=== PATIENT | female | born 1945 | race Two or more races ===

== ENCOUNTER 2024-11-16 09:02 | Outpatient (CLI) | payer OTHER | END 2024-11-16 09:07 | disposition home or self-care (01) | LOC: RAD 09:02 | PROVIDERS: ATTEND Physical Medicine & Rehabilitation | DX: M54.59 Other low back pain (principal) ==

== ENCOUNTER → 2025-08-06 | Emergency (ER) | payer OTHER ==
[~2025-08-06] VITALS: Ht 152.4 cm; Wt 56.7 kg
[~2025-08-06] MED LIST: 0.9 % SODIUM CHLORIDE 500 ML IV SCH; ANUSOL-HC25 MG RECTAL; DIPHENHYDRAMINE HCL 50 MG/ML VIAL 1ML IV ONE; DIPHENHYDRAMINE HCL 50 MG/ML VIAL 1ML ONE; METHYLPREDNISOLONE SOD SUCC 125 MG VIAL IV ONE; METHYLPREDNISOLONE SOD SUCC 125 MG VIAL ONE; PANTOPRAZOLE SODIUM 40 MG/VIAL VIAL IV ONE
[2025-08-06 21:39] LABS: BASO % 0.3 % (0.1-1.2); EOS # 0.09 (0.04-0.54); EOS % 1.0 % (0.7-7.0); LYMPH # 3.62 (1.18-3.74); LYMPH % 38.2 % (19.3-53.1); MEAN PLATELET VOLUME 9.30 fl (9.4-12.4); MONO # 0.85 (0.24-0.82); MONO % 9.0 % (4.7-12.5); NEUT # 4.87 (1.56-6.13); NEUT % 51.4 % (34.0-71.1); RED CELL DISTRIBUTION WIDTH 13.2 % (11.6-14.4)
[2025-08-06 21:46] LABS: ERYTHROCYTE SEDIMENTATION RATE 34 mm/hr (0-30)
[2025-08-06 23:52] LABS: INR 1.00
[2025-08-06 23:53] LABS: ALT/SGPT 34 U/L (12-78); AST/SGOT 28 U/L (15-37); BILIRUBIN TOTAL 0.30 mg/dL (0.3-1.2); BUN CREA RATIO 17 (7.0-25.0); CREATININE SERUM 0.83 mg/dL (0.55-1.02); GFR 66.48; GLOBULINA 3.6 G/DL (2.4-3.5); GLUCOSE FASTING 129 mg/dL (65-100); OSMOLALITY SERUM 289 MOSM/KG (275-295)
[2025-08-07 00:26] LABS: CKMB 2.5 NG/ML (0.5-3.6); PHOSPHOKINASE CREATININE 123.0 U/L (26-192)
[2025-08-07 01:10] VITALS: BP 121/77; O2SAT 96
== END | disposition home or self-care (01) ==
LOC: ER 18:01
DX: K62.5 Hemorrhage of anus and rectum (principal); R10.9 Unspecified abdominal pain; E11.9 Type 2 diabetes mellitus without complications; Z88.5 Allergy status to narcotic agent; Z91.013 Allergy to seafood
CPT/HCPCS: 36415; 70450; 71260; 74176; 93005; 96365; 99284; J7042; Q9965